=== PATIENT | male | born 1960 | race Caucasian/White ===

== ENCOUNTER 2016-07-27 13:35 | Emergency (ER) | payer BC ==
[2016-07-27 14:35] VITALS: BP 136/77
--- NOTE | 2016-07-27 16:19 | UC ---
Throat Pain/Nasal Jun HPI - HPI Summary HPI Summary: Bilateral ears plugged, sinus full, headache, drain in back of throat since Saturday and getting worse with facial pressure and pain. Failed Netti Pot and flonase. [ End ] - History of Current Complaint Chief Complaint: UCGeneralIllness Stated Complaint: SINUS COMPLAINT Time Seen by Provider: 07/27/16 16:12 Hx Obtained From: Patient Onset/Duration: Gradual Onset Severity: Mild Associated Signs & Symptoms: Positive: Sinus Discomfort, Nasal Discharge - Allergies/Home Medications Allergies/Adverse Reactions: Allergies Allergy/AdvReac Type Severity Reaction Status Date / Time No Known Allergies Allergy Verified 07/27/16 14:35 PMH/Surg Hx/FS Hx/Imm Hx Previously Healthy: Yes Endocrine History Of: Denies: Diabetes Cardiovascular History Of: Reports: Hypertension Respiratory History Of: Denies: COPD GI/ History Of: Denies: Ulcer Neurological History Of: Denies: CVA Cancer History Of: Denies: Lung Cancer Other History Of: Negative For: HIV - Surgical History Surgical History: Yes Surgery Procedure, Year, and Place: Basal cell cancer removed from left chest 2 years ago - Family History Known Family History: Positive: Hypertension - Social History Alcohol Use: Daily Alcohol Amount: 1 BEER DAILY Substance Use Type: None Smoking Status (MU): Never Smoked Tobacco Review of Systems Constitutional: Negative, Fatigue Skin: Negative Eyes: Negative ENT: Nasal Discharge, Other - sinus pressure Respiratory: Negative Cardiovascular: Negative Gastrointestinal: Negative Genitourinary: Negative Motor: Negative Neurovascular: Negative Musculoskeletal: Negative Neurological: Negative Psychological: Negative All Other Systems Reviewed And Are Negative: Yes Physical Exam Triage Information Reviewed: Yes Appearance: Well-Appearing, No Pain Distress, Well-Nourished Vital Signs: Initial Vital Signs Temp 98.2 F 07/27/16 14:31 Pulse 57 07/27/16 14:31 Resp 14 07/27/16 14:31 BP 136/77 07/27/16 14:31 Pulse Ox 98 07/27/16 14:31 Vital Signs Reviewed: Yes Eye Exam: Normal ENT Exam: Normal ENT: Positive: Nasal drainage, TMs normal, Other: - sinus pressure frontal. Negative: Tonsillar swelling, Tonsillar exudate Dental Exam: Normal Neck exam: Normal Neck: Positive: 1 Respiratory Exam: Normal Cardiovascular Exam: Normal Abdominal Exam: Normal Musculoskeletal Exam: Normal Neurological Exam: Normal Psychological Exam: Normal Skin Exam: Normal Throat Pain/Nasal Course/Dx - Course Course Of Treatment: He is aware likely viral and states he will start antihistamine and cont netti pot and flonase and if sx persist or worsen then can start augmentin and aware of SE like c diff - Differential Dx/Diagnosis Differential Diagnosis/HQI/PQRI: Sinusitis Provider Diagnoses: Sinusitis Discharge - Discharge Plan Condition: Good Disposition: HOME Prescriptions: Amoxicillin/Clavulanate TAB* [Augmentin TAB 875*] 875 mg PO BID #20 tab Patient Education Materials: Sinusitis (ED) Referrals: Porter Sun MD [Primary Care Provider] - 3 Days Additional Instructions: As we discussed you likely have a virus and will continue to treat with conservative treatment with Netti Pot and Flonase and if your symptoms worsen over the next 48 hours you may start Augmentin. You are aware of the Side effects of this med and take with probiotics and a meal
== END 2016-07-27 16:30 | disposition home or self-care (01) ==
LOC: UCCORT 13:35
DX: J32.1 Chronic frontal sinusitis (principal); I10 Essential (primary) hypertension; Z85.828 Personal history of other malignant neoplasm of skin
CPT/HCPCS: 99212; G0463

== ENCOUNTER 2017-08-27 17:33 | Emergency (ER) | payer BC ==
[2017-08-27 20:01] VITALS: BP 135/81
--- NOTE | 2017-08-27 20:19 | UC ---
General HPI - HPI Summary HPI Summary: pt had headache saturday pm. yesterday developed fever, chills, sore throat and cough with congestion. the throat is most bothersome. - History of Current Complaint Chief Complaint: UCRespiratory Stated Complaint: FEVER/CHILLS/HEADACHE/CHEST CONGESTION Time Seen by Provider: 08/27/17 20:03 Hx Obtained From: Patient Onset/Duration: Gradual Onset Pain Intensity: 2 Associated Signs & Symptoms: Positive: Cough, Fever. Negative: Chest Pain - Allergy/Home Medications Allergies/Adverse Reactions: Allergies Allergy/AdvReac Type Severity Reaction Status Date / Time No Known Allergies Allergy Verified 07/27/16 14:35 Home Medications: Home Medications Ibuprofen [Advil] 400 08/27/17 [History] Tamsulosin HCl 0.4 mg PO 08/27/17 [History] guaiFENesin [Mucinex] 08/27/17 [History] PMH/Surg Hx/FS Hx/Imm Hx - Additional Past Medical History Additional PMH: BPH Cardiovascular History: Hypertension Other History Of: Negative For: HIV - Surgical History Surgical History: Yes Surgery Procedure, Year, and Place: Basal cell cancer removed from left chest 2 years ago - Family History Known Family History: Positive: Hypertension - Social History Occupation: Employed Full-time Alcohol Use: Daily Alcohol Amount: 1 BEER DAILY Substance Use Type: None Smoking Status (MU): Never Smoked Tobacco - Immunization History Vaccination Up to Date: Yes Review of Systems Constitutional: Fever, Chills Skin: Negative Eyes: Negative ENT: Sore Throat Respiratory: Cough Cardiovascular: Negative Gastrointestinal: Negative Genitourinary: Negative Motor: Negative Neurovascular: Negative Musculoskeletal: Negative Neurological: Negative Psychological: Negative Is Patient Immunocompromised?: No All Other Systems Reviewed And Are Negative: Yes Physical Exam Triage Information Reviewed: Yes Appearance: Well-Appearing Vital Signs: Initial Vital Signs Temp 99.6 F 08/27/17 19:58 Pulse 89 08/27/17 19:58 Resp 18 08/27/17 19:58 BP 135/81 08/27/17 19:58 Pulse Ox 99 08/27/17 19:58 Vital Signs Reviewed: Yes Eyes: Positive: Conjunctiva Clear ENT: Positive: Pharyngeal erythema - withmild uvular swelling, TMs normal, Uvula midline. Negative: Nasal drainage, Tonsillar swelling, Tonsillar exudate , Trismus, Muffled voice, Hoarse voice Neck: Positive: Supple, Nontender, No Lymphadenopathy Respiratory: Positive: Lungs clear, Normal breath sounds, No respiratory distress Cardiovascular: Positive: RRR, No Murmur, Pulses Normal Abdomen Description: Positive: Nontender, No Organomegaly, Soft Bowel Sounds: Positive: Present Neurological: Positive: Alert Psychological: Positive: Age Appropriate Behavior Skin Exam: Normal Diagnostics - Laboratory Diagnostic Studies Completed/Ordered: rapid strep=neg. flu B+ Course/Dx - Course Course Of Treatment: declined pain medication - Differential Dx - Multi-Symptom Provider Diagnoses: Influenza B Discharge - Discharge Plan Condition: Stable Disposition: HOME Prescriptions: Oseltamivir CAP* [Tamiflu CAP*] 75 mg PO BID #10 cap Patient Education Materials: Influenza (ED) Forms: *Work Release Referrals: Porter Sun MD [Primary Care Provider] - 7 Days
[2017-08-27] MEDS ORDERED: Oseltamivir CAP* 75 MG CAP PO ONE (20:35)
== END 2017-08-27 20:43 | disposition home or self-care (01) ==
LOC: UCCORT 17:33
DX: J10.1 Influenza due to other identified influenza virus with other respiratory manifestations (principal)
CPT/HCPCS: 87502; 87651; 99212; A9270-GY; G0463

== ENCOUNTER 2018-08-08 13:12 | Emergency (ER) | payer BC ==
[2018-08-08 14:19] VITALS: BP 142/83
--- NOTE | 2018-08-08 14:37 | UC ---
Respiratory Complaint HPI - HPI Summary HPI Summary: Is a 57-year-old male with about a week history of sinus pressure and pain postnasal drip. Initially he had fever and chills. Now his left face was swelling. Both of his ears feel plugged. He denies any chest pain or shortness of breath. He denies any nausea vomiting or diarrhea. - History of Current Complaint Chief Complaint: UCGeneralIllness Stated Complaint: SINUS FACIAL/JAW SWELLING EARS Time Seen by Provider: 08/08/18 14:23 Hx Obtained From: Patient Onset/Duration: Gradual Onset, Lasting Days Timing: Constant Severity Initially: Mild Severity Currently: Moderate Pain Intensity: 0 Pain Scale Used: 0-10 Numeric Character: Cough: Nonproductive Aggravating Factors: Nothing Associated Signs And Symptoms: Positive: Fever, Chills, Nasal Congestion, Hoarseness, Sinus Discomfort - Allergies/Home Medications Allergies/Adverse Reactions: Allergies Allergy/AdvReac Type Severity Reaction Status Date / Time No Known Allergies Allergy Verified 08/08/18 14:15 Home Medications: Home Medications Lisinopril TAB* [Prinivil TAB*] 10 mg PO DAILY 08/08/18 [History Confirmed 08/08] PMH/Surg Hx/FS Hx/Imm Hx Previously Healthy: Yes Cardiovascular History: Hypertension GI/ History: Other Other GI/ History: BPH Other History Of: Negative For: HIV - Surgical History Surgical History: Yes Surgery Procedure, Year, and Place: Basal cell cancer removed from left chest 2 years ago - Family History Known Family History: Positive: Hypertension - Social History Alcohol Use: 1 beer with dinner daily Alcohol Amount: 1 BEER DAILY Substance Use Type: None Smoking Status (MU): Never Smoked Tobacco - Immunization History Vaccination Up to Date: Yes Review of Systems All Other Systems Reviewed And Are Negative: Yes Constitutional: Positive: Fever, Chills, Fatigue Skin: Positive: Negative Eyes: Positive: Negative ENT: Positive: Ear Ache, Nasal Discharge, Sinus Congestion, Sinus Pain/ Tenderness Respiratory: Positive: Cough Cardiovascular: Positive: Negative Gastrointestinal: Positive: Negative Genitourinary: Positive: Negative Motor: Positive: Negative Neurovascular: Positive: Negative Musculoskeletal: Positive: Negative Neurological: Positive: Negative Psychological: Positive: Negative Physical Exam Triage Information Reviewed: Yes Appearance: Well-Appearing, No Pain Distress, Well-Nourished Vital Signs: Initial Vital Signs Temp 98 F 08/08/18 14:13 Pulse 80 08/08/18 14:13 Resp 16 08/08/18 14:13 BP 142/83 08/08/18 14:13 Pulse Ox 100 08/08/18 14:13 Vital Signs Reviewed: Yes Eyes: Positive: Conjunctiva Clear ENT: Positive: Hearing grossly normal, Nasal congestion, Nasal drainage, TMs normal, Sinus tenderness, Uvula midline. Negative: Tonsillar swelling, Tonsillar exudate, Trismus, Muffled voice, Hoarse voice Dental Exam: Normal Neck: Positive: Supple, Nontender, No Lymphadenopathy Respiratory: Positive: Lungs clear, Normal breath sounds, No respiratory distress, No accessory muscle use Cardiovascular: Positive: RRR, No Murmur Musculoskeletal: Positive: ROM Intact, No Edema Neurological: Positive: Alert Psychological Exam: Normal Skin Exam: Normal UC Diagnostic Evaluation - Laboratory O2 Sat by Pulse Oximetry: 100 - normal/not hypoxic Respiratory Course/Dx - Differential Dx/Diagnosis Provider Diagnosis: Acute sinusitis Discharge - Sign-Out/Discharge Documenting (check all that apply): Patient Departure All imaging exams completed and their final reports reviewed: No Studies - Discharge Plan Condition: Stable Disposition: HOME Prescriptions: Amoxicillin PO (*) [Amoxicillin 875 MG (*)] 875 mg PO BID #20 tab Patient Education Materials: Sinusitis (ED), Warm Compress or Soak (ED) Referrals: Tomas Hall MD [Primary Care Provider] - If Needed Additional Instructions: use your neti pot recheck for new or worsening symptoms recheck next week if not better - Billing Disposition and Condition Condition: STABLE Disposition: Home
== END 2018-08-08 14:47 | disposition home or self-care (01) ==
LOC: UCCORT 13:12
DX: J01.90 Acute sinusitis, unspecified (principal); I10 Essential (primary) hypertension; Z79.899 Other long term (current) drug therapy
CPT/HCPCS: 99212; G0463